=== PATIENT | male | born 1960 ===

== ENCOUNTER 2023-07-02 18:31 | Emergency (ER) | payer OTHER ==
[~2023-07-02] VITALS: Ht 182.9 cm; Wt 87.4 kg
[2023-07-02] MEDS ORDERED: KETOROLAC TROMETH 30 MG/ML 1ML VIAL IM ONE (22:45)
[2023-07-02 22:47] VITALS: BP 129/86; PULSE 69; RESP 14; TEMP 97.9; O2SAT 98
== END 2023-07-02 23:01 | disposition home or self-care (01) ==
LOC: ER 18:31
DX: M54.42 Lumbago with sciatica, left side (principal)
CPT/HCPCS: 73502; 96372; 99283; J1885